=== PATIENT | male | born 1980 | race Caucasian/White ===

== ENCOUNTER 2023-07-10 09:42 | Emergency (ER) | payer OTHER, SELFPAY ==
[2023-07-10 09:44] VITALS: BP 157/92; PULSE 107; RESP 14; TEMP 35.8; O2SAT 98
[2023-07-10 09:45] VITALS: BMI 20.3
--- NOTE | 2023-07-10 10:07 | EDS_ITS ---
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 He stood up to work on a car and hit his head on the bottom of the car causing a scalp laceration. Tetanus is up-to-date within the last 5 years. Denies any other injuries. No LOC. He is not on any blood thinners. Tetanus Immunization: <5 years Prior similar symptoms: No Recent Illness/Hospitalization: No PFSH PFSH no medical history Allergy/AdvReac Type Severity Reaction Status Date / Time azithromycin Allergy Severe Anaphylaxis Verified 07/10/23 09:43 Penicillins Allergy Severe Anaphylaxis Verified 07/10/23 09:43 ROS ROS ED ROS Narrative Denies recent illness. Review of Systems ROS Unobtainable: Denies due to encephalopathy Constitutional Constitutional ED: Denies chills or fever(s) Eyes Eyes: Denies blurry vision ENT ENT ED: Denies ear pain Cardiovascular Cardiovascular: Denies chest pain or palpitations Respiratory/Chest Respiratory/Chest: Denies cough or dyspnea Gastrointestinal Gastrointestinal: Denies abdominal pain Genitourinary Genitourinary ED: Denies dysuria or hematuria Musculoskeletal Musculoskeletal: Denies arthralgias or back pain Integumentary Denies abscess Neurologic Neurologic: Denies headache(s) Psychiatric Psychiatric: Denies anxiety or depression Endocrine Endocrinology: Denies cold intolerance Hematologic/Lymphatic Hematologic/Lymphatic: Denies easy bleeding, easy bruising or lymphadenopathy Allergic/Immunologic Allergic/Immunologic ED: Denies mouth swelling, tongue swelling or urticaria EXAM Physical Exam Narrative Exam Narrative: 42-year-old male vital signs stable afebrile. No acute distress. Sitting upright in bed. Coworker at bedside. HEENT exam pupils round reactive light no facial trauma. The top of his scalp midline is about 2-1/2 inch laceration curr ently no active bleeding some dried blood. No foreign body. No infection. Involves the skin and subcu tissue. Neck nontender. Full range of motion. Lungs clear. Heart regular rhythm. Chest wall and ribs nontender. Abdomen soft nontender. Back nontender. Moving all 4 extremities. Normal strength. Normal range of motion. Neurologically is awake and alert. GCS of 15. Answering questions and following commands. Const Vital Signs: 07/10/23 09:44 Temperature 96.5 F L Temperature Source Temporal Pulse Rate 107 H Respiratory Rate 14 Blood Pressure 157/92 H Blood Pressure Mean 113 Pulse Ox 98 Oxygen Delivery Method Room Air Positive well nourished and well developed; Negative for obese, cachectic, contractures or unkempt General Appearance ED: well developed and NAD; Negative for unkempt, cachectic or contractures Nutritional Appearance: Negative for cachectic or obese HEENT HEENT Narrative: Up of scalp midline laceration 2 and half inches. Involves the skin and subcu tissue. No significant hematoma. trauma and tenderness Eyes PERRL and EOMs intact bilaterally Neck full ROM General: Negative for tenderness Chest Wall inspection of chest normal and palpation of chest normal Breast/Axilla Inspection: Negative for other Resp normal respiratory effort and clear to auscultation bilaterally Effort and Inspection: Negative for pain with movement Auscultation: Negative for rales, rhonchi or wheezes Cardio regular rhythm, S1 normal heart sound, S2 normal heart sound and no murmurs Rate: regular rate Rhythm: Negative for abnormal rhythm GI normal to inspection, nondistended, normoactive bowel sounds, non-tender, non- distended and no masses Inspection: Negative for abdominal distention Auscultation: normoactive bowel sounds Palpation: soft; Negative for tender or guarding Back/Spine normal to inspection and no thoracic nor lumbar tenderness General Back: Negative for CVA tenderness Thoracic Spine / Upper Back: Negative for thoracic spinal tenderness Extremity normal to inspection and full ROM General Extremety ED: Negative for deformity, edema or tenderness General Extremity: Negative for deformity or edema Neuro oriented x3, CN's II-XII intact bilaterally, moves all extremities, no focal motor deficits and no sensory deficits noted [place] Coma Scale: document GCS findings Spontaneous Obeys Commands Oriented 15 Sensorium / Orientation: alert, oriented to person, oriented to place and oriented to time; Negative for orientation impaired, lethargic or stuporous Motor Exam: strength 5/5 throughout Psych mental status grossly normal and thought process normal Appearance: Negative for unkempt Attitude: No agitated Mood & Affect: Negative for depressed, anxious or tearful Skin no rashes or lesions noted, no wounds, skin turgor normal and no jaundice Skin Narrative: Scalp laceration. General Skin Exam: Negative for other Rashes: No rashes noted Trauma: Negative for abrasion Wounds: wounds noted PROC Procedures Lacerations Scalp laceration repair:: Length: 2.5 in Depth: Sub Q Shape: Linear Prep: Shure-Clens Laceration repair: Lidocaine with epi and Local Number of Sutures/Adriana: 6 Suture Information: - ([facility]) Comment: Linear top of scalp laceration. Midline. 2.5 inches. Local anesthetized lidocaine with epinephrine. Cleaned with Shur-Clens. Washed and irrigated with saline. Explored. Involve the skin and subcu tissue. Does not go down to the skull. No foreign body. Closed using 6 adriana. Patient tolerated well. Good hemostasis and wound closure. Instructed on wound care and staple removal in 10 days. Discharge Plan Triage Chief Complaint: Laceration ED Provider: Theo Garrett Dx/Rx/DC Orders Clinical Impression: Encounter related to worker's compensation claim, Closed head injury, Lac eration of scalp Instructions: ED Head Injury (Adult), ED Laceration: All Closures Referrals: [facility] [Group of Physicians] - 10 Day for suture removal Activity Restrictions/Additional Instructions: Ice to the area. Tylenol and Motrin for pain. Adriana out in 10 days. Wash carefully. Try carefully by patting dry. Antibiotic ointment daily. If any signs of infection are seen return. Disposition Disposition: Home, Self Care
[2023-07-10] MEDS: Lidocaine 1% /Epi 1:100 (20ml) 20 ML Vial 10 ML INFILT (10:10)
[2023-07-10 10:32] VITALS: RESP 16
== END 2023-07-10 10:33 | disposition home or self-care (01) ==
LOC: ED 10:20
PROVIDERS: Emergency Provider Emergency Medicine; Visit Provider Emergency Medicine
DX: S01.01XA Laceration without foreign body of scalp, initial encounter (principal); W22.09XA Striking against other stationary object, initial encounter; Y93.89 Activity, other specified; Y99.0 Civilian activity done for income or pay; Y92.89 Other specified places as the place of occurrence of the external cause
CPT/HCPCS: 12002; 99283